=== PATIENT | female | born 1975 | race Caucasian/White ===

== ENCOUNTER → 2023-07-27 16:14 | Outpatient (REF) | payer OTHER, SELFPAY | LOC: HWWDC 16:14 | PROVIDERS: ATTENDING PHYSICIAN Obstetrics & Gynecology; FAMILY PHYSICIAN Nurse Practitioner Primary Care | DX: Z12.31 Encounter for screening mammogram for malignant neoplasm of breast (principal) | CPT/HCPCS: 77063; 77067 ==

== ENCOUNTER → 2024-12-25 13:49 | Outpatient (REF) | payer OTHER, SELFPAY | LOC: WDC 13:49 | PROVIDERS: ATTENDING PHYSICIAN Advanced Practice Midwife; FAMILY PHYSICIAN Nurse Practitioner Family | DX: Z12.31 Encounter for screening mammogram for malignant neoplasm of breast (principal) | CPT/HCPCS: 77063; 77067 ==